=== PATIENT | female | born 1945 | race American Indian/Alaskan Native ===

== ENCOUNTER 2017-01-05 15:04 | Inpatient (IN) | payer MEDICARE, MEDICAID ==
[~2017-01-05] VITALS: Ht 152.4 cm; Wt 93.7 kg
[2017-01-05 16:40] LABS: Alanine Aminotransferase 58 U/L (13-56); Albumin 2.8 g/dL (3.4-5.0); Alkaline Phosphatase 202 U/L (45-117); Anion Gap 7 (5-15); Aspartate Aminotransferase 300 U/L (15-37); BUN/Creatinine Ratio 11.3; Basophils # (auto) 0 uL; Basophils % (auto) 0.5 % (0.0-2.0); Bilirubin, Total 2.9 mg/dL (0.2-1.0); Blood Urea Nitrogen 8 mg/dL (7-18); Calcium 9.6 mg/dL (8.5-10.1); Carbon Dioxide 27 mmol/L (21-32); Chloride 105 mmol/L (98-107); Eosinophils # (auto) 0.1 uL; Eosinophils % (auto) 2.6 % (0.0-7.0); GFR African American 104 mL/min; GFR Non-African American 86 mL/min; Glucose 136 mg/dL (74-106); Hematocrit 40.3 % (36.0-46.0); Hemoglobin 13.3 g/dL (12.2-16.2); Lymphocytes # (auto) 0.9 uL; Lymphocytes % (auto) 21.8 % (10.0-50.0); Magnesium 2.1 mg/dL (1.6-2.6); Mean Corpuscular Hemoglobin 29.2 pg (28.0-32.0); Mean Corpuscular Hgb Conc. 33.1 g/dL (32.0-36.0); Mean Corpuscular Volume 88.4 fL (80.0-100.0); Monocytes # (auto) 0.3 uL; Neutrophils # (auto) 2.6 uL; Neutrophils % (auto) 67.1 % (37.0-80.0); Nucleated Red Blood Cells % 0.1 %; Platelet Count (auto) 104 10^3/uL (140-450); Red Blood Cells 4.57 10^6/uL (4.0-5.20); Red Cell Distribution Width 15.9 % (11.8-14.3); Sodium 139 mmol/L (136-145); Total Protein 7.8 g/dL (6.4-8.2); White Blood Cell 3.9 10^3/uL (4.4-10.8)
[2017-01-05 16:46] LABS: Potassium 2.8 mmol/L (3.5-5.1)
[2017-01-05] MEDS ORDERED: POTASSIUM CHL 20 Meq TABLET PO ONE (17:15)
[2017-01-05] MEDS ORDERED: SODIUM CHLORIDE 0.9% 500 ML IV ONE (20:30)
[2017-01-05] MEDS ORDERED: cloNIDine HCL 0.1 MG TAB PO ONE (20:30)
[2017-01-05] MEDS ORDERED: POTASSIUM CHL 20MEQ/50ML 50 ML IV ONE (20:30)
[2017-01-05] MEDS ORDERED: ONDANSETRON HCL 4 MG/2 ML VIAL IV PRN (22:45)
[2017-01-05] MEDS ORDERED: MORPHINE SULFATE 10 MG/ML INJ 1ML SDV IV PRN (22:45)
[2017-01-05] MEDS ORDERED: NITROGLYCERIN 0.4 MG SL TAB SL PRN (22:45)
[2017-01-06] VITALS (8 sets, daily range): BP systolic 124–164; BP diastolic 71–88
[2017-01-06] MEDS: SODIUM CHLORIDE 0.9% 1,000 ML IV SCH ×2 (00:44→12:40)
[2017-01-06 07:19] LABS: Basophils # (auto) 0 uL; Basophils % (auto) 0.5 % (0.0-2.0); Eosinophils # (auto) 0.1 uL; Eosinophils % (auto) 3.8 % (0.0-7.0); Hematocrit 37.4 % (36.0-46.0); Hemoglobin 12.3 g/dL (12.2-16.2); Lymphocytes # (auto) 0.9 uL; Lymphocytes % (auto) 23.4 % (10.0-50.0); Mean Corpuscular Hemoglobin 29.4 pg (28.0-32.0); Mean Corpuscular Hgb Conc. 32.9 g/dL (32.0-36.0); Mean Corpuscular Volume 89.3 fL (80.0-100.0); Monocytes # (auto) 0.3 uL; Monocytes % (auto) 7.9 % (0.0-12.0); Neutrophils # (auto) 2.4 uL; Neutrophils % (auto) 64.4 % (37.0-80.0); Nucleated Red Blood Cells % 0.4 %; Platelet Count (auto) 99 10^3/uL (140-450); Red Blood Cells 4.18 10^6/uL (4.0-5.20); Red Cell Distribution Width 16.1 % (11.8-14.3); White Blood Cell 3.8 10^3/uL (4.4-10.8)
[2017-01-06 07:37] LABS: INR 1.4 (0.9-1.15); Partial Thromboplastin Time 34.8 sec (22.64-33.71); Prothrombin Time 15.3 sec (9.37-12.3)
[2017-01-06 07:40] LABS: Albumin 2.5 g/dL (3.4-5.0); Calcium 9.2 mg/dL (8.5-10.1); Potassium 3.4 mmol/L (3.5-5.1)
[2017-01-06 07:42] LABS: BUN/Creatinine Ratio 16.3
[2017-01-06 07:48] LABS: Bilirubin, Total 3.1 mg/dL (0.2-1.0); Total Protein 6.9 g/dL (6.4-8.2)
[2017-01-06] MEDS ORDERED: PANTOPRAZOLE 40 MG/10 ML VIAL IV SCH (10:00)
[2017-01-06] MEDS ORDERED: LISI-646 PO (14:55)
[2017-01-06] MEDS ORDERED: PANT40TA2 PO (14:55)
[2017-01-06] MEDS ORDERED: LISINOPRIL 20 MG TAB PO ONE (15:00)
[2017-01-06] MEDS ORDERED: POTASSIUM CHL 20 Meq TABLET PO ONE (15:00)
== END 2017-01-06 16:24 | disposition home or self-care (01) | DRG 241 ==
LOC: ER 15:04 → TELE 15:05 → TELE-WESTW 23:32
PROVIDERS: ADMIT Nurse Practitioner Family; ATTEND Internal Medicine
DX: K29.70 Gastritis, unspecified, without bleeding (principal); E44.0 Moderate protein-calorie malnutrition; K85.90 Acute pancreatitis without necrosis or infection, unspecified; K70.30 Alcoholic cirrhosis of liver without ascites; K86.89 Other specified diseases of pancreas; Z68.41 Body mass index [BMI] 40.0-44.9, adult; E87.6 Hypokalemia; I10 Essential (primary) hypertension; R73.9 Hyperglycemia, unspecified; K27.9 Peptic ulcer, site unspecified, unspecified as acute or chronic, without hemorrhage or perforation
CPT/HCPCS: 36415; 71010; 74176; 80053; 82150; 83036; 83690; 83735; 84484; 85025; 85610; 85730; 96365; 96366; C9113